=== PATIENT | male | born 1950 | race Caucasian/White ===

== ENCOUNTER 2025-01-03 10:14 | Emergency (ER) | payer OTHER, SELFPAY ==
[2025-01-03 10:21] VITALS: BP 172/82; PULSE 76; RESP 16; TEMP 36.7; O2SAT 98
--- NOTE | 2025-01-03 16:18 | ED_ITS ---
HPI - Eye Problem General Chief complaint: Eye Problems Stated complaint: LT Eye Problem Time Seen by Provider: 01/03/25 10:31 Source: patient and RN notes reviewed Mode of arrival: ambulatory Limitations: no limitations History of Present Illness HPI Narrative: 74-year-old male patient with history of left-sided corneal transplant and retinal detachment 10 year ago, presents today with left-sided blurred vision and eye pain since 9:00 a.m. yesterday morning. Since that time his vision has progressively become more blurry but his eye pain has somewhat improved. He currently rates his pain 5/10 and has tried Aleve with some mild improvement. Patient had an eye exam and new glasses prescription approximately 1 month ago at [facility] in [place]. Did not call the office when symptoms began. Related Data Home Medications ?Medication ?Instructions ?Recorded ?Confirmed ?Last Taken ?Type No Home Medications 01/03/25 01/03/25 U nknown History Allergies Allergy/AdvReac Type Severity Reaction Status Date / Time No Known Allergies Allergy Verified 01/03/25 10:33 [facility] Past Medical History Medical History (Updated 01/03/25 @ 16:21 by Avelina Bales, [facility], ) History of retinal detachment Surgical History Surgical History (Updated 01/03/25 @ 16:21 by Avelina Bales, [facility], ) History of corneal transplant Comments At time of signature, I have reviewed and agree with nursing past medical, surgical, social and family history unless otherwise noted. Please see nursing chart for further information. There is no relevant family history pertinent to the presenting complaint Exam Narrative: GENERAL: Well-appearing, well-nourished, and in no acute distress. HEAD: Normocephalic, atraumatic. EYES: EOMI. Right eye normal. Left eye: Pupil is sluggish to react to light. Patient able to see large shapes with left eye, but unable to read the visual acuity chart. ENT: Mucous membranes pink and moist. NECK: Normal AROM. CHEST: No respiratory distress. EXTREMITIES: Normal range of motion. No edema. SKIN: Warm, dry, no rash. Capillary refill normal. Normal skin turgor. NEURO: No focal deficits. Alert and oriented x3. Gait steady. PSYCH: Normal affect. No signs of depression or anxiety. Course Course Level of Care: Express Care Visit Vital Signs Vital signs: Vital Signs Temperature 98.1 F 01/03/25 10:21 Pulse Rate 76 01/03/25 10:21 Respiratory Rate 16 01/03/25 10:21 Blood Pressure 172/82 H 01/03/25 10:21 Pulse Oximetry 98 01/03/25 10:21 Oxygen Delivery Room Air 01/03/25 10:21 Temperature 98.1 F 01/03/25 10:21 Pulse Rate 76 01/03/25 10:21 Respiratory Rate 16 01/03/25 10:21 Blood Pressure 172/82 H 01/03/25 10:21 Pulse Oximetry 98 01/03/25 10:21 Oxygen Delivery Room Air 01/03/25 10:21 Reviewed MDM - Eye Problem MDM Narrative Medical decision making narrative: Patient's symptoms are suspicious for retinal detachment. Called his doctor's office at [facility], they were unable to take him as they did not have been bi data modeler in the office. Then contacted [facility]. They set him up with an appoitment at 1300 today at their [place] office for evaluation. Patient agrees with plan. VSS, BP a bit elevated, possibly due to pain/anxiety. Differential Diagnosis Differential diagnosis: Likely other (Retinal detachment) Critical Care Time Critical Care Time Critical Care Time: No Discharge Plan Discharge Clinical Impression: Blurred vision, left eye Patient Disposition: Home Condition: Serious Additional Instructions: You have been set up with an appointment with an eye doctor at [facility] in [place] at 1pm. [address], [place] Patient Language: Lithuanian Prescriptions: No Action No Home Medications Follow-up/Referrals: PHYSICIAN,STAFF AIR TACTICAL OFFICER [Primary Care Provider, Internal Medicine] Time of Disposition: 11:11
== END 2025-01-03 11:15 | disposition home or self-care (01) ==
PROVIDERS: Emergency Provider Nurse Practitioner
DX: H53.8 Other visual disturbances (principal); H57.12 Ocular pain, left eye; Z94.7 Corneal transplant status
CPT/HCPCS: 99202; G0463